=== PATIENT | male | born 1960 | race Two or more races ===

== ENCOUNTER 2017-12-28 15:40 | Observation (INO) | payer OTHER ==
[~2017-12-28] VITALS: Ht 172.7 cm; Wt 136.1 kg
[2017-12-28] MEDS ORDERED: ONDANSETRON HCL 4 MG/2 ML VIAL IV ONE (16:00)
[2017-12-28] MEDS ORDERED: CALCTAB25 PO (16:14)
[2017-12-28] MEDS ORDERED: TRIA50TA2 PO (16:14)
[2017-12-28] MEDS ORDERED: ATE50T PO (16:14)
[2017-12-28] MEDS ORDERED: AML5T PO (16:14)
[2017-12-28] MEDS ORDERED: ATO40T PO (16:14)
[2017-12-28] MEDS ORDERED: LISI40TA PO (16:14)
[2017-12-28] MEDS ORDERED: ATOR1TAB PO (16:14)
[2017-12-28 16:17] LABS: Hematocrit 39.4 % (41.0-53.0); Hemoglobin 12.7 g/dL (13.5-17.5); Mean Corpuscular Hemoglobin 30.4 pg (28.0-32.0); Mean Corpuscular Hgb Conc. 32.3 g/dL (32.0-36.0); Mean Corpuscular Volume 94.1 fL (80.0-100.0); Platelet Count (auto) 377 10^3/uL (140-450); Red Blood Cells 4.18 10^6/uL (4.5-5.90); Red Cell Distribution Width 17.7 % (11.8-14.3); White Blood Cell 13.9 10^3/uL (4.4-10.8)
[2017-12-28 16:25] LABS: INR 1.33 (0.9-1.15); Partial Thromboplastin Time 34.3 sec (23.78-33.04)
[2017-12-28 16:27] LABS: Amylase 34 U/L (25-115); Blood Alcohol < 3.0 mg/dL (0-5); Lipase 803 U/L (73-393)
[2017-12-28 16:29] LABS: Alanine Aminotransferase 137 U/L (16-61); Anion Gap 25 (5-15); Aspartate Aminotransferase 747 U/L (15-37); BUN/Creatinine Ratio 32.9; Calcium 9.4 mg/dL (8.5-10.1); Carbon Dioxide 16 mmol/L (21-32); Chloride 86 mmol/L (98-107); GFR African American 30 mL/min; GFR Non-African American 25 mL/min; Glucose 129 mg/dL (74-106); Magnesium 3.3 mg/dL (1.6-2.6); Potassium 4.8 mmol/L (3.5-5.1); Sodium 127 mmol/L (136-145)
[2017-12-28 16:34] LABS: Alkaline Phosphatase 361 U/L (45-117); Bilirubin, Total 12.8 mg/dL (0.2-1.0); Total Protein 6.5 g/dL (6.4-8.2)
[2017-12-28 16:35] LABS: Basophils % (manual) 0 (0.0-2.0); Blast Cells 0; Eosinophils % (manual) 0 (0-7); Metamyelocytes % 0; Myelocytes % 0; Promyelocytes % 0; Reactive Lymphocytes 0
[2017-12-28 16:37] LABS: Blood Urea Nitrogen 92 mg/dL (7-18)
[2017-12-28] MEDS ORDERED: LACTULOSE 20Gm/30ML SOLN PO ONE (17:15)
[2017-12-28 17:19] LABS: Band Neutrophils % (manual) 7; Lymphocytes % (manual) 8 (10.0-50.0); Monocytes % (manual) 6 (0-12)
[2017-12-28] MEDS ORDERED: SODIUM CHLORIDE 0.9% 1,000 ML IV ONE (18:00)
[2017-12-28 19:49] VITALS: BP 106/55
== END 2017-12-28 20:04 | disposition short-term general hospital (02) | DRG 433 ==
LOC: EDBD 15:40 → ER 15:44 → OVERFLOW 15:54 → ER 20:04
PROVIDERS: ADMIT Family Medicine; ATTEND Family Medicine
DX: K70.40 Alcoholic hepatic failure without coma (principal); F10.288 Alcohol dependence with other alcohol-induced disorder; K70.31 Alcoholic cirrhosis of liver with ascites; R11.2 Nausea with vomiting, unspecified; I10 Essential (primary) hypertension; Z82.49 Family history of ischemic heart disease and other diseases of the circulatory system; Z85.46 Personal history of malignant neoplasm of prostate
CPT/HCPCS: 36415; 71045; 74176; 80053; 80320; 82140; 82150; 83690; 83735; 84484; 85007; 85027; 85610; 85730; 93005; 96361; 96374; 99291; G0378; J2405; J7030